=== PATIENT | male | born 1965 | race Caucasian/White ===

== ENCOUNTER 2018-11-28 06:14 | Emergency (ER) | payer OTHER ==
[2018-11-28] MEDS ORDERED: ASPIRIN 81 MG TABLET, CHEWABLE PO ONE (06:26)
[2018-11-28 07:07] LABS: ABSOLUTE EOSINOPHILS # (AUTO) 0.3 10^3/uL (0.0-0.6); ABSOLUTE MONOCYTES (AUTO) 0.7 10^3/uL (0.1-1.4); ABSOLUTE NEUT (AUTO) 2.7 10^3/uL (1.7-8.2); BASOPHILS % (AUTO) 0.5 % (0-2); EOSINOPHILS % (AUTO) 4.5 % (0-6); HEMATOCRIT 47.1 % (37.9-51.0); HEMOGLOBIN 16.4 g/dL (13.5-17.0); LYMPHOCYTES % (AUTO) 44.1 % (13-45); MEAN CORPUSCULAR HEMOGLOBIN 32.7 pg (27.0-33.4); MEAN CORPUSCULAR HGB CONC 34.8 g/dL (32.0-36.0); MEAN CORPUSCULAR VOLUME 94 fl (80-97); MONOCYTES % (AUTO) 10.9 % (3-13); PLATELET COUNT 246 10^3/uL (150-450); RED BLOOD COUNT 5.01 10^6/uL (4.35-5.55); RED CELL DISTRIBUTION WIDTH 12.8 % (11.5-14.0); TOTAL CELLS COUNTED % (AUTO) 100 %; WHITE BLOOD COUNT 6.8 10^3/uL (4.0-10.5)
[2018-11-28] MEDS ORDERED: LORAZEPAM INJ 2 MG/1 ML VIAL IV ONE (07:18)
--- NOTE | 2018-11-28 07:19 | ER Document Report ---
ED General - General Chief Complaint: Chest Pain Stated Complaint: CHEST PAIN Time Seen by Provider: 11/28/18 07:05 Primary Care Provider: MINA HANCOCK MD [Primary Care Provider] - Follow up as needed TRAVEL OUTSIDE OF THE [place] IN LAST 30 DAYS: No - HPI Notes: Vision presents approximately 2 days of pressure midsternal nonradiating chest pain. Patient states he has had these symptoms in the past. He states that he has not had a history of heart attack or stroke. Does not take any medications on a daily basis. Mild cough but no recent fevers or sputum production. No shortness of breath with exertion. - Related Data Allergies/Adverse Reactions: No Known Allergies Allergy (Verified 11/28/18 07:03) Past Medical History - General Information source: Patient - Social History Smoking Status: Never Smoker Chew tobacco use (# tins/day): No Frequency of alcohol use: Occasional Drug Abuse: None Family History: Reviewed & Not Pertinent Patient has suicidal ideation: No Patient has homicidal ideation: No - Past Medical History Cardiac Medical History: Reports: Hx Hypertension Renal/ Medical History: Denies: Hx Peritoneal Dialysis GI Medical History: Reports: Hx Gastroesophageal Reflux Disease Review of Systems - Review of Systems Constitutional: No symptoms reported EENT: No symptoms reported Cardiovascular: No symptoms reported Respiratory: See HPI Gastrointestinal: No symptoms reported Genitourinary: No symptoms reported Male Genitourinary: No symptoms reported Musculoskeletal: No symptoms reported Skin: No symptoms reported Hematologic/Lymphatic: No symptoms reported Neurological/Psychological: No symptoms reported Physical Exam - Vital signs Vitals: Temp Pulse Resp BP Pulse Ox 97.6 F 89 16 167/114 H 98 11/28/18 06:23 11/28/18 06:23 11/28/18 06:23 11/28/18 06:23 11/28/18 06:23 - General General appearance: Appears well, Anxious - HEENT Head: Normocephalic, Atraumatic - Respiratory Respiratory status: No respiratory distress Chest status: Nontender Breath sounds: Normal - Cardiovascular Rhythm: Regular Heart sounds: Normal auscultation Murmur: No - Abdominal Inspection: Normal Distension: No distension Bowel sounds: Normal - Extremities General upper extremity: Normal inspection General lower extremity: Normal inspection Course - Re-evaluation Re-evalutation: 11/28/18 07:17 Patient has a low risk heart score. He denies any shortness of breath with exertion and uses a push mower to mow his yard without difficulty. He has had these symptoms in the past. He states he does have anxiety. His pain is been consistent for approximately 2 days. ACS work-up in progress. 11/28/18 10:27 Symptoms improved after GI cocktail. Although therapeutically not diagnostic patient is still low risk heart score based on risk factors. If second troponin negative will be discharged with antacids and PCP follow-up. I did discuss outpatient stress test would be warranted to further risk stratify patient. He understands and agrees with plan. 11/28/18 11:43 2, 4-hour troponin and 2, 4-hour EKG shows no changes with negative findings. Will place patient on Zantac and discussed outpatient stress testing per previous discussion. Term precautions provided - Vital Signs Vital signs: Temp Pulse Resp BP Pulse Ox 97.6 F 89 16 150/108 H 98 11/28/18 06:23 11/28/18 06:23 11/28/18 07:31 11/28/18 07:31 11/28/18 07:31 - Laboratory Result Diagrams: 11/28/18 06:46 11/28/18 06:46 Laboratory results interpreted by me: 11/28/18 11/28/18 06:46 06:46 Seg Neutrophils % 40.0 L BUN 5 L Glucose 150 H - EKG Interpretation by Or EKG shows normal: Sinus rhythm Rate: Normal - Concerning ST depressions or elevations, normal intervals borderline left axis deviation When compared to previous EKG there are: No significant change - No significant change from 12/17/2014 Additional EKG results interpreted by ne: 11/28/18 11:19 Repeat x-ray 1116 shows rate of 74, normal sinus rhythm, normal intervals borderline left axis deviation no significant change from prior Discharge - Discharge Clinical Impression: Chest discomfort Condition: Good Disposition: HOME, SELF-CARE Instructions: Chest Pain of Unclear Cause ([facility]) Additional Instructions: Please return to the emergency department for any worsening of symptoms or any other concerns. Prescriptions: Ranitidine HCl [Zantac] 150 mg PO BID #30 tablet Referrals: MINA HANCOCK MD [Primary Care Provider] - 12/01/18 (To discuss emergency m edicine visit as well as consideration of outpatient stress testing)
[2018-11-28 07:26] LABS: ALBUMIN 4.2 g/dL (3.5-5.0); ALKALINE PHOSPHATASE 76 U/L (38-126); ANION GAP 13 (5-19); ASPARTATE AMINO TRANSFERASE 41 U/L (17-59); BILIRUBIN,DIRECT 0.3 mg/dL (0.0-0.4); BILIRUBIN,TOTAL 0.5 mg/dL (0.2-1.3); BLOOD UREA NITROGEN 5 mg/dL (7-20); CALCIUM 9.5 mg/dL (8.4-10.2); CARBON DIOXIDE 23 mmol/L (22-30); CHLORIDE 102 mmol/L (98-107); CREATINE KINASE 83 U/L (55-170); GLUCOSE 150 mg/dL (75-110); POTASSIUM 3.8 mmol/L (3.6-5.0); TOTAL PROTEIN 6.9 g/dL (6.3-8.2)
[2018-11-28 07:37] LABS: CREATINE KINASE MB 0.97 ng/mL (<4.55)
[2018-11-28 07:39] LABS: TROPONIN I < 0.012 ng/mL
[2018-11-28 07:40] LABS: PROTHROMBIN TIME 13.2 SEC (11.4-15.4)
[2018-11-28 07:41] LABS: PARTIAL THROMBOPLASTIN TIME 28.2 SEC (23.5-35.8)
--- NOTE | 2018-11-28 07:44 | RADIOLOGY REPORT (SQ) ---
EXAM DESCRIPTION: X-ray two view chest. CLINICAL HISTORY: 53 years Male, chest pain COMPARISON: 12/17/2014 TECHNIQUE: PA and Lateral views of the chest performed on 11/28/2018 at 7:38 AM FINDINGS: The lungs are well expanded and are clear. The costophrenic sulci are clear. There is no evidence of a pneumothorax. The cardiac silhouette is normal in size. The mediastinal contours are normal. No acute osseous abnormalities are identified. No focal soft tissue abnormalities are identified. IMPRESSION: No evidence of acute intrathoracic disease. No significant change since the prior study.
[2018-11-28 07:56] VITALS: BP 150/108
[2018-11-28] MEDS ORDERED: LIDOCAINE 2% VISCOUS SOLN 20 ML UDCUP PO ONE (08:16)
[2018-11-28] MEDS ORDERED: MAG HYDROX/AL HYDROX/SIMETH SUSP 30 ML UDCUP PO ONE (08:16)
[2018-11-28] MEDS ORDERED: METOCLOPRAMIDE HCL ORAL SOLN 10 MG/10 ML UDCUP PO ONE (08:16)
--- NOTE | 2018-11-28 12:27 | EKG REPORT ---
SEVERITY:- OTHERWISE NORMAL ECG - SINUS RHYTHM BORDERLINE LEFT AXIS DEVIATION : Confirmed by: Chanda Oconnor MD 28-Nov-2018 12:26:07
--- NOTE | 2018-11-28 12:27 | EKG REPORT ---
SEVERITY:- OTHERWISE NORMAL ECG - SINUS RHYTHM BORDERLINE LEFT AXIS DEVIATION : Confirmed by: Chanda Oconnor MD 28-Nov-2018 12:26:10
== END 2018-11-28 11:59 | disposition home or self-care (01) ==
LOC: ER 06:14
DX: R07.9 Chest pain, unspecified (principal); R05 Cough; I10 Essential (primary) hypertension
CPT/HCPCS: 93005; 99284; 96374; 36415; 82553; 82550; 85025; 85610; 85730; 80053; 84484; 71046; 93010; J3490; J2060